=== PATIENT | female | born 1990 | race Asian ===

== ENCOUNTER 2017-05-05 06:24 | Day surgery (SDC) | payer OTHER ==
[~2017-05-05] VITALS: Ht 421.6 cm; Wt 55.9 kg
[2017-05-05] MEDS ORDERED: ZANTAC 150150 MG (07:17)
[2017-05-05 07:27] VITALS: BP 101/68; PULSE 68; TEMP 97.5
[2017-05-05 08:10] VITALS: BP 106/78; PULSE 71; TEMP 97.8
[2017-05-05 08:25] VITALS: BP 101/58; PULSE 63
[2017-05-05 08:40] VITALS: BP 105/63; PULSE 58
[2017-05-05] MEDS ORDERED: PRILOTC (08:57)
[2017-05-05 09:00] VITALS: BP 100/70; PULSE 68
== END 2017-05-05 09:30 | disposition home or self-care (01) ==
LOC: SDCO 06:24
DX: K21.0 Gastro-esophageal reflux disease with esophagitis (principal); K30 Functional dyspepsia; B96.81 Helicobacter pylori [H. pylori] as the cause of diseases classified elsewhere; K92.1 Melena; K59.00 Constipation, unspecified
CPT/HCPCS: OP; J2250; J2405; J3010; J7030

== ENCOUNTER → 2018-03-23 | Outpatient (CLI) | payer OTHER ==
[~2018-03-23] MED LIST: PRILOTC; ZANTAC 150150 MG
== END ==
LOC: COL.RAD 07:38
DX: K21.0 Gastro-esophageal reflux disease with esophagitis (principal)
CPT/HCPCS: A9541

== ENCOUNTER → 2018-03-28 | Outpatient (CLI) | payer OTHER | LOC: COL.RAD 08:41 | DX: K21.0 Gastro-esophageal reflux disease with esophagitis (principal); R11.10 Vomiting, unspecified ==

== ENCOUNTER → 2022-03-08 | Outpatient (CLI) | payer OTHER | LOC: COL.RAD 11:32 | DX: R10.11 Right upper quadrant pain (principal) ==